=== PATIENT | male | born 1940 | race Caucasian/White ===

== ENCOUNTER 2017-03-26 03:36 | Inpatient (IN) | payer OTHER, BC ==
[~2017-03-26] VITALS: Ht 170.2 cm; Wt 78.5 kg
[2017-03-26 05:53] LABS: PLATELET COUNT 370 x10^3mcL (130-400); RED CELL DISTRIBUTION WIDTH 14.4 % (11.5-14.5)
[2017-03-26 06:06] LABS: CALCIUM 10.3 mg/dL (8.5-10.1); CARBON DIOXIDE 27.8 mmol/L (21-32); CHLORIDE SERUM 100 mmol/L (98-107); GLUCOSE SERUM 160 mg/dL (74-106); POTASSIUM SERUM 4.2 mmol/L (3.5-5.1); SODIUM SERUM 136 mmol/L (136-145)
[2017-03-26 06:10] LABS: ALBUMIN 4.6 g/dL (3.4-5.0); ALKALINE PHOSPHATASE 77 U/L (46-116); ALT/SGPT 39 U/L (16-63); AST/SGOT 36 U/L (15-37); BILIRUBIN TOTAL 1.26 mg/dL (0.20-1.00); LIPASE 65 IU/L (73-393)
[2017-03-26 06:12] LABS: TOTAL PROTEIN, SERUM 8.5 g/dL (6.4-8.2)
[2017-03-26 06:29] LABS: BAND NEUTROPHIL 5 % (0-10); METAMYELOCTE 5 % (0-2); MONOCYTE 7 % (0-7); SEGMENTED NEUTROPHILS 77 % (37-75); rbc morphology (normal/abnorm) NORMAL (NORMAL)
[2017-03-26 06:30] LABS: PLATELET MORPHOLOGY FEW LARGE PLATELETS
[2017-03-26] MEDS ORDERED: LIPI20 PO (08:03)
[2017-03-26 09:04] LABS: UA SPECIFIC GRAVITY 1.015 (1.005-1.035); microscopic required? YES; urine erythrocyte 2+ (NEGATIVE)
[2017-03-26 09:14] LABS: MAGNESIUM 2.3 mg/dL (1.8-2.4); PHOSPHOROUS 4.9 mg/dL (2.5-4.9)
[2017-03-26 09:18] LABS: T3 TOTAL 0.78 ng/mL
[2017-03-26 09:25] LABS: CHOLESTEROL/HDL RATIO 2.5
[2017-03-26 09:28] LABS: FREE T4 1.34 ng/dL (0.76-1.46); T4(THYROXINE) 11.4 ug/dL (4.7-13.3)
[2017-03-26 10:03] VITALS: BP 151/75
[2017-03-26 10:46] VITALS: BP 151/75
[2017-03-26 14:03] VITALS: BP 136/69; BP 98/56
[2017-03-26 19:44] VITALS: Ht 170.2 cm; Wt 78.5 kg
[2017-03-26 20:56] VITALS: BP 133/65
[2017-03-27 05:15] VITALS: BP 113/56
[2017-03-27 06:51] LABS: BASOPHIL % 0.3 % (0-2); PLATELET COUNT 274 x10^3mcL (130-400); RED CELL DISTRIBUTION WIDTH 14.1 % (11.5-14.5)
[2017-03-27 07:14] LABS: CALCIUM 8.5 mg/dL (8.5-10.1); CARBON DIOXIDE 29.3 mmol/L (21-32); CHLORIDE SERUM 108 mmol/L (98-107); CREATININE SERUM 1.2 mg/dL (0.7-1.3); GLUCOSE SERUM 104 mg/dL (74-106); POTASSIUM SERUM 3.8 mmol/L (3.5-5.1); SODIUM SERUM 142 mmol/L (136-145)
[2017-03-27 08:47] VITALS: BP 130/69
[2017-03-27 11:55] VITALS: BP 148/78
[2017-03-27 20:35] VITALS: BP 138/55
[2017-03-28 05:23] VITALS: BP 115/69
[2017-03-28 06:32] LABS: BASOPHIL % 0.5 % (0-2); PLATELET COUNT 308 x10^3mcL (130-400); RED CELL DISTRIBUTION WIDTH 13.9 % (11.5-14.5)
[2017-03-28 06:44] LABS: CALCIUM 8.8 mg/dL (8.5-10.1); CARBON DIOXIDE 29.3 mmol/L (21-32); CHLORIDE SERUM 106 mmol/L (98-107); GLUCOSE SERUM 98 mg/dL (74-106); MAGNESIUM 1.9 mg/dL (1.8-2.4); PHOSPHOROUS 3.2 mg/dL (2.5-4.9); POTASSIUM SERUM 3.9 mmol/L (3.5-5.1); SODIUM SERUM 142 mmol/L (136-145)
[2017-03-28 09:52] VITALS: BP 134/61
[2017-03-28 11:46] LABS: calcium (part of PTHIC) 8.6 mg/dL (8.6-10.2)
[2017-03-28] MEDS ORDERED: FLO4 PO (12:37)
[2017-03-28] MEDS ORDERED: NOR5 PO (12:40)
[2017-03-28 13:05] VITALS: BP 134/61
[2017-03-28 13:07] VITALS: BP 137/64
== END 2017-03-28 15:05 | disposition home or self-care (01) | DRG 694 ==
LOC: ED 03:36 → DU 07:13
PROVIDERS: Emergency Medicine; Family Medicine; ADMIT Family Medicine
DX: N13.30 Unspecified hydronephrosis (principal); I16.1 Hypertensive emergency; J98.11 Atelectasis; T83.83XA Hemorrhage due to genitourinary prosthetic devices, implants and grafts, initial encounter; N17.0 Acute kidney failure with tubular necrosis; N12 Tubulo-interstitial nephritis, not specified as acute or chronic; N40.1 Benign prostatic hyperplasia with lower urinary tract symptoms; R33.8 Other retention of urine; R80.9 Proteinuria, unspecified; E80.6 Other disorders of bilirubin metabolism; I34.0 Nonrheumatic mitral (valve) insufficiency; I37.1 Nonrheumatic pulmonary valve insufficiency; R73.03 Prediabetes; E83.52 Hypercalcemia; E78.5 Hyperlipidemia, unspecified; Z79.4 Long term (current) use of insulin; Z68.27 Body mass index [BMI] 27.0-27.9, adult; Z87.891 Personal history of nicotine dependence
CPT/HCPCS: 82962; 83880; 84439; 94150; J1170; J2405; J2543; J3490; J7030; Q0092